=== PATIENT | female | born 1930 | race Caucasian/White ===

== ENCOUNTER 2016-08-04 10:40 | Inpatient (IN) | payer MEDICARE, BC, OTHER ==
--- NOTE | ~2016-08-04 | CR72 ---
[facility] A Service of [facility] & [facility] RADIOLOGY TEXT RESULTS PATIENT: MONICA REDMAN LOCATION: [place] [address] : [birth year] UNIT #: [id number] AGE: [address]: Janina Manzo MD SEX: F ORDER DR: [id number] [facility] [address] [facility] [place], [place] [address] [id number] I MR#: [id number] Acc #: [id number] NAME: MONICA REDMAN : 1930 SEX: F STUDY DATE/TIME: 08/06/2016 8:48 UNIT: [facility] ROOM: 5 STUDY DESCRIPTION: CR Chest Single View Portable Attending Physician: Janina Manzo M.D. Ordering Physician: Janina Manzo M.D. Primary Care Physician: Roman Bahena M.D. MEDICAL IMAGING REPORT This report is preliminary unless electronic signature is present EXAM Portable chest, 08/06 COMPARISON 08/04 HISTORY Fever, mental status change today. FINDINGS An AP view is obtained. Heart size is normal. 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 No acute process is seen. There is atherosclerotic calcification of the aorta. Postsurgical changes are identified in the left shoulder. 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 Dictated by... Mayco Mccord M.D. THIS IS AN ELECTRONICALLY VERIFIED REPORT Mayco Mccord M.D. at 08/09/2016 9:18 AM Juvencio TD: 08/06/2016 10:52 JOB #: [id number] MEDICAL IMAGING REPORT Page 1 of 1 COPY
--- NOTE | ~2016-08-04 | HP ---
Unit #: [id number] #: [id number] Patient: MONICA REDMAN [id number] [place] [id number] [facility]. [place], [place] [address] [id number] MR#: [id number] NAME: MONICA REDMAN ROOM: Age: 86 Sex: F Admission Date: 08/04/2016 : 1930 Attending Physician: Chris Cruz M.D. Primary Care Physician: Roman Bahena M.D. HISTORY AND PHYSICAL CHIEF COMPLAINT Short of air. HISTORY OF PRESENT ILLNESS The patient is an 86-year-old female with a past medical history of congestive heart failure, hypertension, hyperlipidemia, paroxysmal atrial fibrillation, chronic kidney disease and gastroesophageal reflux disease. The patient presented to the emergency department from the longterm for evaluation of the above. History is obtained from chart review and discussion with the emergency room staff, as well as from the patient. She has apparently not been feeling well for two to three weeks. She reports increasing shortness of breath and productive cough. She denies any chills. She is not sure if she has had any fever. She has had chest wall pain in association with cough. She also reports decreased appetite. She denies any vomiting or diarrhea. No urinary symptoms. There is a chest x-ray from 07/31/2016 that showed right lower lobe infiltrate. Per longterm documentation, she was placed on Levaquin to complete 10-day course. The patient's symptoms persisted and worsened. Oxygen saturation was 86% on room air. She was sent to the emergency department for further evaluation. In the emergency department initial oxygen saturation was 90% on 4 liters. Temperature 100.6, pulse 91, blood pressure 159/80. Chest x-ray shows diffuse interstitial change bilaterally. White blood cell count is 16.9. Lactic acid is 1.3. She was given vancomycin, tobramycin and cefepime as well as 1 liter of normal saline. She is being admitted to [facility] for evaluation and further treatment. PAST MEDICAL HISTORY 1. [facility]. The patient states it has been a little more than a year ago. (No records.) 2. Atrial fibrillation, paroxysmal. The patient states that she was on Coumadin years ago, but the desktop operator took her off the Coumadin and placed her only on aspirin. She is not able to recall the name of her desktop operator. 3. Coronary artery disease. 4. Congestive heart failure with unknown ejection fraction. 5. Hypertension. 6. Hyperlipidemia. 7. Chronic kidney disease. 8. Gastroesophageal reflux disease. SOCIAL HISTORY Unit #: [id number] #: [id number] Patient: MONICA REDMAN The patient is at a longterm. She is not ambulatory. She quit smoking. She denies alcohol use. Her code status is a do not resuscitate. FAMILY HISTORY Noncontributory secondary to age. ALLERGIES Penicillin. HOME MEDICATIONS 1. Senna S. 2. Colace. 3. Hydralazine. 4. Isordil. 5. Metoprolol. 6. Zofran. 7. Gabapentin. 8. Desyrel. 9. Pyridoxine. 10. Lipitor. 11. Tramadol. 12. Acetaminophen. 13. Dulcolax. 14. Albuterol. 15. Claritin. 16. Vitamin D3. 17. Omeprazole. 18. Polyethylene glycol. 19. Aspirin. 20. Nitrostat. 21. Proctodone. 22. Albuterol. 23. Guaifenesin. 24. Dextromethorphan. Home medications will need to be reviewed and verified. REVIEW OF SYSTEMS A complete review of systems is negative except as indicated in the history of present illness. PHYSICAL EXAMINATION GENERAL: The patient is a female who is sleeping, but wakes to voice. VITALS: Temperature 100.6, pulse 90, respiratory rate 18, blood pressure 159/80, oxygen saturation 91% on room air. Again, per longterm documentation the patient's oxygen saturation dropped to 86% on room air. HEENT: The head is atraumatic. Mucous membranes are dry. NECK: Supple. Trachea midline. LUNGS: Few scattered rhonchi. Breathing is not labored with conversation. HEART: Irregular. ABDOMEN: Soft and nontender with bowel sounds present in all four quadrants. EXTREMITIES: Nontender with no pedal edema. NEUROLOGIC: The patient is awake and alert. She follows commands. She is moving all extremities. PSYCHIATRIC: Mood and affect are normal. The patient is cooperative. Unit #: [id number] #: [id number] Patient: MONICA REDMAN SKIN: Skin of examined areas is warm and dry. DIAGNOSTIC STUDIES IMAGING: Chest x-ray shows diffuse interstitial change bilaterally. LABORATORY: INR is 1.1, lactic acid 1.3, troponin less than 0.05. CMP notable for glucose of 149, albumin 3.4. Urinalysis shows trace leukocyte esterase, 2+ protein. CBC notable for white blood cell count 16.9. CARDIOVASCULAR: EKG shows normal sinus rhythm with a rate of 93 beats per minute. ASSESSMENT The patient is an 86-year-old female with 1. Acute respiratory failure, hypoxic. Oxygen saturation was 86% on room air. 2. Healthcare associated pneumonia. The patient also failed treatment with Levaquin at the longterm. She received cefepime, tobramycin and vancomycin in the emergency department today. 3. Sepsis with an initial lactic acid of 1.3. The patient received one liter of normal saline in the emergency department. 4. Congestive heart failure with unknown ejection fraction. 5. Hypertension. 6. Hyperlipidemia. 7. Paroxysmal atrial fibrillation. Not on chronic anticoagulation. 8. Chronic kidney disease. The patient's creatinine is 1.1 today and it was 1.2 on 04/01/2009. 9. Gastroesophageal reflux disease. 10. Former smoker. PLAN 1. Admit to intermediate level. 2. Two gram sodium 1800 cc fluid restricted heart-healthy diet if passes bedside swallow. 3. Supplemental oxygen. 4. Blood cultures times two. 5. Sputum culture and sensitivity. 6. Procalcitonin level. 7. Streptococcal and legionella urine antigens. 8. Duo-Nebs q.4 h. 9. Vancomycin IV, tobramycin IV, cefepime IV for healthcare associated pneumonia pending further workup. 10. Sepsis protocol with repeat lactic acid. 11. Check BNP and magnesium. 12. Strict ins and outs. 13. Daily weights. 14. Serial cardiac enzymes. 15. Get records from [place], including echocardiogram if available. 16. P.r.n. Tylenol. 17. SCDs for DVT prophylaxis. 18. Repeat labs in the morning. 19. Additional workup and consultants based on the above. CODE STATUS The patient is a do not resuscitate. Unit #: [id number] #: [id number] Patient: MONICA REDMAN Dictated by Little Castro M.D. ANNY/guille TD: 08/04/2016 13:32 JOB #: [id number] HISTORY AND PHYSICAL Page 1 of 1 X Little Castro MD HISTORY AND PHYSICAL
--- NOTE | ~2016-08-04 | CT71 ---
[facility] A Service of [facility] & [facility] RADIOLOGY TEXT RESULTS PATIENT: MONICA REDMAN LOCATION: [facility] 227-01 : [birth year] UNIT #: [id number] AGE: [address]: Janina Manzo MD SEX: F ORDER DR: [id number] [facility] [address] [facility]. [place], [place] [address] [id number] I MR#: [id number] Acc #: [id number] NAME: MONICA REDMAN : 1930 SEX: F STUDY DATE/TIME: 08/07/2016 12:12 UNIT: C5 ROOM: 575 STUDY DESCRIPTION: CT Head Wo Contrast Attending Physician: Janina Manzo M.D. Ordering Physician: Janina Manzo M.D. Primary Care Physician: Roman Bahena M.D. MEDICAL IMAGING REPORT This report is preliminary unless electronic signature is present EXAM Head CT without HISTORY Altered mental status and confusion. Lack of response today. No history of cancer or trauma. COMMENT Routine noncontrast head CT is reviewed. There is no prior. This CT examination was performed with one or more of the following radiation dose reduction techniques: automatic exposure control, adjustment of mA and/or kV according to patient size, and iterative reconstruction. There is no displaced calvarial fracture. There is a small amount of fluid or inflammatory change in the mastoid air cells bilaterally. There is also an air-fluid level in the left sphenoid sinus which is nearly completely opacified consistent with a component of acute sinusitis. There is partial opacification of the ethmoid air cells left greater than right. Probably a small air-fluid level at the inferior left frontal sinus. There is generalized atrophy and fairly extensive white matter low-attenuation which is nonspecific but probably due to small vessel disease in the patient's age group. Chronic-appearing lacunar insults in the basal ganglia noted. There is a chronic lacune in the left superior cerebellar hemisphere. No extraaxial fluid collection or acute intracranial hemorrhage is suspected. The basilar cisterns are patent. The patient has had cataract surgery bilaterally. There is no intracranial mass effect. There is no obvious acute cortical infarct but if this is the clinical concern and the patient is a candidate she is best assessed further with an MRI. No intracranial mass effect. [facility] A Service of [facility] & [facility] RADIOLOGY TEXT RESULTS PATIENT: MONICA REDMAN LOCATION: [facility] 227-01 : [birth year] UNIT #: [id number] AGE: [address]: Janina Manzo MD SEX: F ORDER DR: IMPRESSION 1. Fairly extensive probable sequelae of small vessel disease. Atrophy in general. No acute intracranial abnormality is appreciated but if there is clinical concern for acute CVA, and the patient is a candidate, followup MRI would be most helpful. 2. There is evidence of acute sinusitis including a large air-fluid level in the left sphenoid sinus and probably a small air-fluid level in the left frontal sinus. Also partial opacification of mastoid air cells with small air-fluid levels. Please correlate further clinically. Dictated by... Fariha Carlisle M.D. THIS IS AN ELECTRONICALLY VERIFIED REPORT Fariha Carlisle M.D. at 08/10/2016 1:59 PM RONIT/lucian TD: 08/07/2016 14:05 JOB #: [id number] MEDICAL IMAGING REPORT Page 1 of 1 COPY
--- NOTE | ~2016-08-04 | CT16 ---
[facility] A Service [facility] RADIOLOGY TEXT RESULTS PATIENT: MONICA REDMAN LOCATION: [facility] 575-01 : [birth year] UNIT #: [id number] AGE: [address]: Janina Manzo MD SEX: F ORDER DR: [id number] [facility] [address] [facility] [facility]. [place], [place] [address] [id number] I MR#: [id number] Acc #: [id number] NAME: MONICA REDMAN : 1930 SEX: F STUDY DATE/TIME: 08/06/2016 18:15 UNIT: [facility] ROOM: [facility] STUDY DESCRIPTION: CT Angio Chest for PE Attending Physician: Janina Manzo M.D. Ordering Physician: Janina Manzo M.D. Primary Care Physician: Roman Bahena M.D. MEDICAL IMAGING REPORT This report is preliminary unless electronic signature is present EXAM CT angiogram chest with IV contrast HISTORY Shortness of air. Cough for 1 week. TECHNIQUE IV contrast enhanced CT angiogram of the chest was performed with 3-D reconstructions. Exam sensitivity is limited by patient motion. This CT exam was performed with one or more of the following radiation dose reduction techniques: automatic exposure control, adjustment of mA and/or kV according to patient size, and iterative reconstruction. FINDINGS There is mild atelectasis in the posterior lower lobes bilaterally. Minimal subsegmental atelectasis in the inferior left upper lobe. No pulmonary embolus is identified, although sensitivity is limited. Partly calcified mitral annulus. Incidental 7 mm non-obstructing stone in the upper pole of the left kidney. Bilateral incidental renal cysts. Normal caliber thoracic aorta. IMPRESSION 1. No pulmonary embolus is identified but sensitivity is limited by motion artifact. 2. Mild atelectasis in the posterior inferior lower lobe and minimal atelectasis in the inferior left upper lobe. 3. No adenopathy. 4. Incidental 7 mm non-obstructing stone in the upper pole left kidney and several incidental bilateral renal cysts. [facility] A Service of [facility] RADIOLOGY TEXT RESULTS PATIENT: MONICA REDMAN LOCATION: [place] [address] : [birth year] UNIT #: [id number] AGE: [address]: Janina Manzo MD SEX: F ORDER DR: Dictated by... Donta Sharp M.D. THIS IS AN ELECTRONICALLY VERIFIED REPORT Donta Sharp M.D. at 08/06/2016 10:54 PM DFL/pcl TD: 08/06/2016 21:51 JOB #: [id number] MEDICAL IMAGING REPORT Page 1 of 1 COPY
--- NOTE | ~2016-08-04 | XA166 ---
[facility] A Service of [facility] RADIOLOGY TEXT RESULTS PATIENT: MONICA REDMAN LOCATION: [facility] 227-01 : [birth year] UNIT #: [id number] AGE: [address]: Janina Manzo MD SEX: F ORDER DR: [id number] [facility] [address] [place] [facility]. [place], [place] [address] [id number] I MR#: [id number] Acc #: [id number] NAME: MONICA REDMAN : 1930 SEX: F STUDY DATE/TIME: 08/07/2016 14:22 UNIT: [facility] ROOM: 575 STUDY DESCRIPTION: XA PICC Line Placement WO Port Attending Physician: Janina Manzo M.D. Ordering Physician: Janina Manzo M.D. Primary Care Physician: Roman Bahena M.D. MEDICAL IMAGING REPORT This report is preliminary unless electronic signature is present EXAM PICC line placement under ultrasound fluoroscopy HISTORY Long-term antibiotic therapy. PRE-PROCEDURE The procedure was explained to the patient and/or patient construction representative including risks, benefits, potential complications and potential for alternative forms of treatment. Informed consent was obtained, and prior to initiating the procedure a formal timeout procedure was performed. PROCEDURE Using full standard sterile barrier technique, including caps, gowns, gloves, masks, as well as sterile skin preparation and standard sterile draping, the left arm was prepped and draped in the usual fashion, and real-time sterile ultrasound guidance was used to localize an arm vein and to confirm vessel patency. A hard copy ultrasound image was recorded. After local anesthesia with 1% Xylocaine, the left brachial vein was punctured using real-time sterile ultrasound guidance, and an 0.018 guidewire was advanced into the superior vena cava, using fluoroscopic guidance. A 5-Namibian dual-lumen PICC was then measured to 42 cm and deployed with the tip positioned in the superior vena cava. The position of the line was documented with a radiographic image. The line was secured in place with an adhesive dressing and an antibiotic patch was applied. Total fluoro time was 1 minute minutes. A single fluoroscopic spot image was obtained. IMPRESSION 1. Successful placement of a 5-Namibian dual-lumen Power PICC via the left arm under ultrasound and fluoroscopic guidance. The tip of the PICC STS. [facility] A Service of [facility] RADIOLOGY TEXT RESULTS PATIENT: MONICA REDMAN LOCATION: [place] [address] : [birth year] UNIT #: [id number] AGE: [address]: Janina Manzo MD SEX: F ORDER DR: is in good position in the superior vena cava. 2. A single fluoroscopic spot image was obtained. Dictated by... Mayco Mccord M.D. THIS IS AN ELECTRONICALLY VERIFIED REPORT Mayco Mccord M.D. at 08/09/2016 9:17 AM Kobe TD: 08/08/2016 15:08 JOB #: [id number] MEDICAL IMAGING REPORT Page 1 of 1 COPY
--- NOTE | ~2016-08-04 | CR72 ---
[facility] A Service of [place] & [facility] RADIOLOGY TEXT RESULTS PATIENT: MONICA REDMAN LOCATION: [facility] 575-01 : [birth year] UNIT #: [id number] AGE: [address]: Janina Manzo MD SEX: F ORDER DR: [id number] [facility] [address]. [place], [place] [address] [id number] I MR#: [id number] Acc #: [id number] NAME: MONICA REDMAN. : 1930 SEX: F STUDY DATE/TIME: 08/04/2016 UNIT: [facility] ROOM: [facility] STUDY DESCRIPTION: CR Chest Single View Portable Attending Physician: Little Castro M.D. Ordering Physician: Chris Cruz M.D. Primary Care Physician: Roman Bahena M.D. MEDICAL IMAGING REPORT This report is preliminary unless electronic signature is present EXAM Chest portable, 08/04/2016 at 11:10 hours HISTORY An 86-year-old woman with shortness of air today. COMPARISON 09/21/2012 FINDINGS Portable upright chest demonstrates the patient to be rotated to the left. The heart size is at the upper limits of normal with tortuous atherosclerotic aorta unchanged. There is new diffuse interstitial change throughout both lungs likely interstitial edema. No definite effusion. IMPRESSION New diffuse interstitial changes in both lungs likely interstitial edema. This is new from 09/21/2012. There is no effusion. No pneumothorax. Dictated by... Angie Daly M.D. THIS IS AN ELECTRONICALLY VERIFIED REPORT Angie Daly M.D. at 08/05/2016 9:31 AM SONG/yael TD: 08/04/2016 16:15 JOB #: [id number] MEDICAL IMAGING REPORT Page 1 of 1 COPY
--- NOTE | ~2016-08-04 | EKG ---
PATIENT: MONICA REDMAN UNIT #: [id number] Ventricular Rate: 93 BPM Atrial Rate: 93 BPM P-R Interval: 154 ms QRS Duration: 140 ms Q-T Interval: 394 ms QTC Calculation(Bezet): 489 ms P [place]: 32 degrees Calculated R [place]: 47 degrees Calculated T [place]: 3 degrees Diagnosis Line: Normal sinus rhythm Diagnosis Line: Right bundle branch block Diagnosis Line: Abnormal ECG Diagnosis Line: No previous ECGs available Diagnosis Line: Confirmed by JEANNA DUGAN MD ([id number]) on Diagnosis Line: 08/04/2016 10:16:56 PM INTERPRETING MD: JACOB
--- NOTE | ~2016-08-04 | DS ---
Unit #: [id number] #: [id number] Patient: MONICA VIGIL [id number] [address] [address] [id number] I MR#: [id number] NAME: MONICA VIGIL. ROOM: 227 Age: 86 Sex: F Admission Date: 08/04/2016 : 1930 Discharge Date: 08/10/2016 Attending Physician: Janina Manzo M.D. Primary Care Physician: Roman Bahena M.D. DISCHARGE SUMMARY PRINCIPAL DIAGNOSES 1. Sepsis, secondary to right lower lobe pneumonia, presumed aspiration in origin. 2. Acute hypoxic respiratory failure. 3. Acute reactive airway disease. 4. Acute delirium. 5. Chronic kidney disease stage 3 with baseline creatinine of approximately 1.1. 6. History of paroxysmal atrial fibrillation, currently maintained on normal sinus rhythm. 7. Probable chronic diastolic congestive heart failure without exacerbation. 8. Hypertension. 9. Moderate protein malnutrition. 10. Chronic immobility, secondary to severe spinal stenosis. 11. 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 NURSE SUBSTANCE ABUSE None. PROCEDURES 1. Chest x-ray on August 04, 2016 with interstitial changes in both lungs. 2. Chest x-ray on August 06, 2016 with chronic fibrosis of the lungs. 3. CT angiogram of the chest on August 06, 2016, which was negative for pulmonary embolism. Atelectasis in the posterior inferior lower lobe. Noted incidental 7 mm nonobstructing stone in the upper pole of the left kidney. 4. CT of the head without contrast on August 07, 2016 with extensive sequela of small vessel disease and atrophy. Acute sinusitis including large air fluid level in the left sphenoid sinus and the left frontal sinus. Partial opacification of mastoid air cells with small fluid levels. CLINICAL HISTORY AND HOSPITAL COURSE Ms. Vigil is a nice 86-year-old female who presents to the emergency department from the nursing facility with complaints of shortness of breath. Please refer to H and P for further details. Chest x-ray at the nursing facility revealed pneumonia on July 31. She was back improving on Levaquin. She was found to be hypoxic at the nursing facility and again was admitted. Patient was placed on broad-spectrum antibiotics for healthcare-associated pneumonia. She did have associated leukocytosis upon presentation. Chest x-ray here upon presentation revealed questionable edema versus fibrosis Unit #: [id number] #: [id number] Patient: MONICA VIGIL with some right lower lobe infiltrate. There are concerns that perhaps this might represent aspiration, particularly given the fact that her procalcitonin was normal. She was continued on antibiotic therapy and plans were for speech to see the patient. However, the second morning following admission, the patient became increasingly more confused. Extensive workup was initiated including ABGs, repeat blood work, followup chest x-ray, CT angiogram of the chest, and CT scan of the head. None of these revealing probable cause. I did discuss possible lumbar puncture with the patient's daughter but she did not feel she wanted this done at that time. I tend to agree with that given patient's leukocytosis had resolved and she remained afebrile. Patient clinically appeared to have simply just "given up." Ultimately, patient's daughter opted to have comfort measures which seemed appropriate. At this time, still awaiting hospice evaluation but I anticipate patient will either be discharged to the inpatient hospice unit or return to her nursing facility with hospice measures. DISCHARGE CONDITION Stable. DISCHARGE STATUS Discharge to the care of hospice. DISCHARGE MEDICATIONS 1. Robinul 0.4 mg IV q.4 hours p.r.n. for respiratory secretions. 2. Ativan 1 mg IV q.2 hours p.r.n. for anxiety. 3. Morphine 2 to 4 mg IV q.2 hours p.r.n. for pain or shortness of breath. DISCHARGE INSTRUCTIONS 1. The patient was instructed to follow a regular as she so wishes. 2. She can increase her activity as tolerated but again she is immobile at baseline. 3. Followup per hospice. Dictated by... Janina Manzo M.D. BEAN/jesus manuel TD: 08/10/2016 12:28 JOB #: [id number] DISCHARGE SUMMARY Page 1 of 1 X Janina Manzo MD DISCHARGE SUMMARY
[2016-08-04] MEDS ORDERED: DOCUSATE SODIU100 MG PO (10:47)
[2016-08-04] MEDS ORDERED: SENEXON-S TABL1 EACH PO (10:47)
[2016-08-04] MEDS ORDERED: HYDRALAZINE HCL25 MG PO (10:48)
[2016-08-04] MEDS ORDERED: ISORDIL10 MG PO (10:48)
[2016-08-04] MEDS ORDERED: METOPROLOL SUCC25 MG PO (10:49)
[2016-08-04] MEDS ORDERED: ZOFRAN ODT4 M1 PO (10:49)
[2016-08-04] MEDS ORDERED: GABAPENTIN400 M2 PO (10:50)
[2016-08-04] MEDS ORDERED: DESYREL50 MG PO (10:51)
[2016-08-04] MEDS ORDERED: TRAMADOL HCL50 M1 PO (10:52)
[2016-08-04] MEDS ORDERED: LIPITOR40 MG PO (10:52)
[2016-08-04] MEDS ORDERED: PYRIDOXINE HCL50 M1 PO (10:52)
[2016-08-04] MEDS ORDERED: PAIN RELIEF325 M1 PO (10:53)
[2016-08-04] MEDS ORDERED: DULCOLAX10 MG PR (10:53)
[2016-08-04] MEDS ORDERED: ALBUTEROL2.5 MG/3 M (10:54)
[2016-08-04] MEDS ORDERED: VITAMIN D32000 UNI1 PO (10:54)
[2016-08-04] MEDS ORDERED: CLARITIN10 M3 PO (10:54)
[2016-08-04] MEDS ORDERED: OMEPRAZOLE20 M2 PO (10:55)
[2016-08-04] MEDS ORDERED: ASPIRIN81 MG PO (10:56)
[2016-08-04] MEDS ORDERED: GAVILAX17 GM PO (10:56)
[2016-08-04] MEDS ORDERED: NITROSTAT0.4 MG SL (10:56)
[2016-08-04] MEDS ORDERED: ALBUTEROL 0.5ML INH (10:57)
[2016-08-04] MEDS ORDERED: PROCTOZONE-HC30 G2 TOP (10:57)
[2016-08-04] MEDS ORDERED: ROBAFEN DM COU118 ML PO (10:58)
[2016-08-04 11:22] LABS: BASOPHIL% 0.2 % (0-2.5); EOSINOPHIL# 0.2 X10e3 (0-0.7); EOSINOPHIL% 1.3 % (0.0-7.0); HEMATOCRIT 42.2 % (35.0-45.0); HEMOGLOBIN 13.8 gm/dL (12.0-16.0); LYMPHOCYTE# 1.3 X10e3 (1.0-3.5); LYMPHOCYTE% 7.5 % (17.0-45.0); MEAN CELL VOLUME 86.6 FL (83-96); MEAN CORPUSCULAR HEMOGLOBIN 28.3 PG (28-34); MEAN CORPUSCULAR HGB CONC 32.7 g/dL (30-36); MEAN PLATELET VOLUME 8.5 FL (6.5-11.5); MONOCYTE# 0.7 X10e3 (0-1.0); MONOCYTE% 4.4 % (3.0-12.0); NEUTROPHIL# 14.6 X10e3 (1.5-7.1); NEUTROPHIL% 86.6 % (40-75); PLATELET COUNT 148 X10e3 (140-420); RED BLOOD COUNT 4.87 X10e (3.90-5.30); RED CELL DISTRIBUTION WIDTH 15.1 % (11.0-15.5); WHITE BLOOD COUNT 16.9 X10e3 (4.0-10.5)
[2016-08-04 11:26] LABS: DIFF IND YES
[2016-08-04 11:34] LABS: INR 1.1; PARTIAL THROMBOPLASTIN TIME 29.7 SECONDS (23.5-31.3); PROTHROMBIN TIME (PATIENT) 11.5 SECONDS (9.6-11.5)
[2016-08-04 11:45] LABS: ALBUMIN SERUM 3.4 g/dL (3.5-5.0); BILIRUBIN, DIRECT 0.1 mg/dL (0.0-0.2); BILIRUBIN,TOTAL 1.1 mg/dL (0.2-2.0); BUN/CREATININE RATIO 19.09; CALCIUM SERUM 8.8 mg/dL (8.4-10.2); CREATININE SERUM 1.1 mg/dL (0.6-1.4); GLOM FILT RATE Estimated 44.8 mL/min (>60); POTASSIUM 4.1 mmol/L (3.5-5.1); PROTEIN TOTAL SERUM 7.3 g/dL (6.0-8.3)
[2016-08-04 11:46] LABS: POC - CKMB <1.0 ng/mL (0.0-7.9); POC - TROPONIN <0.05 ng/mL (<=0.05)
[2016-08-04 11:56] LABS: URINE APPEARANCE CLEAR; URINE BILIRUBIN NEG (NEG); URINE BLOOD TRACE (NEG); URINE COLOR YELLOW; URINE GLUCOSE NEG (NEG); URINE KETONE NEG (NEG); URINE LEUKOCYTE ESTERASE TRACE (NEG); URINE NITRATE NEG (NEG); URINE PROTEIN 2+ (NEG); URINE SPECIFIC GRAVITY 1.021 (1.003-1.035)
[2016-08-04 11:59] LABS: U HYALINE CASTS AUWI 0-2 /[LPF]; URINE BACTERIA AUWI NEG (NEGATIVE); URINE SQUAMOUS EPITHELIAL CELL OCC /[HPF]; UWBCS1 AUWI 0-2 (0-5)
[2016-08-04 12:12] LABS: CULTURE INDICATED? NO; URINE SOURCE CATH
[2016-08-04 12:17] LABS: URBCS1 AUWI 0-2 /[HPF] (0-2)
[2016-08-04 12:27] LABS: ANISOCYTOSIS SL; PLATELET ESTIMATE NORMAL (NORMAL); RBC NORMAL YES
[2016-08-05 00:12] LABS: MAGNESIUM 1.8 mg/dL (1.6-3.0)
[2016-08-05 00:34] LABS: %MB 3.3 % (0.0-4.0); MB 2.2 ng/ml
[2016-08-05 05:20] LABS: HEMATOCRIT 35.5 % (35.0-45.0); MEAN CELL VOLUME 86.7 FL (83-96); MEAN CORPUSCULAR HEMOGLOBIN 28.4 PG (28-34); MEAN CORPUSCULAR HGB CONC 32.8 g/dL (30-36); MEAN PLATELET VOLUME 8.4 FL (6.5-11.5); RED BLOOD COUNT 4.09 X10e (3.90-5.30); RED CELL DISTRIBUTION WIDTH 15.4 % (11.0-15.5)
[2016-08-05 05:33] LABS: HEMOGLOBIN 11.6 gm/dL (12.0-16.0)
[2016-08-05 05:37] LABS: ALBUMIN SERUM 2.6 g/dL (3.5-5.0); BILIRUBIN,TOTAL 1.4 mg/dL (0.2-2.0); BUN/CREATININE RATIO 20.9; CALCIUM SERUM 8.2 mg/dL (8.4-10.2); CREATININE SERUM 1.1 mg/dL (0.6-1.4); GLOM FILT RATE Estimated 44.8 mL/min (>60); MAGNESIUM 1.8 mg/dL (1.6-3.0); PROTEIN TOTAL SERUM 5.8 g/dL (6.0-8.3)
[2016-08-06 07:08] LABS: INFLUENZA A NEG (NEG); INFLUENZA B NEG (NEG)
[2016-08-06 08:11] LABS: ARTERIAL BLD GAS O2 SATURATION 97.7 % (90.0-100.0); ARTERIAL BLOOD GAS ALLEN TEST NORMAL; ARTERIAL BLOOD GAS ART SITE LEFT RADIAL; ARTERIAL BLOOD GAS CARBOXY HB 0.7 %sat (0.0-9.0); ARTERIAL BLOOD GAS DELIVERY NASAL CANNULA; ARTERIAL BLOOD GAS HCO3 20.9 mmol/L; ARTERIAL BLOOD GAS MET HB 0.6 %sat (0.0-2.0); ARTERIAL BLOOD GAS PCO2 30.4 mmHg (35.0-45.0); ARTERIAL BLOOD GAS PO2 84.3 mmHg (80.0-100); ARTERIAL BLOOD GAS pH 7.446 (7.350-7.450); ARTERIAL DRAW? YES
[2016-08-06 08:16] LABS: HEMATOCRIT 38.3 % (35.0-45.0); HEMOGLOBIN 12.5 gm/dL (12.0-16.0); MEAN CELL VOLUME 87.5 FL (83-96); MEAN CORPUSCULAR HEMOGLOBIN 28.5 PG (28-34); MEAN CORPUSCULAR HGB CONC 32.6 g/dL (30-36); RED BLOOD COUNT 4.38 X10e (3.90-5.30); RED CELL DISTRIBUTION WIDTH 14.8 % (11.0-15.5); WHITE BLOOD COUNT 7.3 X10e3 (4.0-10.5)
[2016-08-06 09:15] LABS: BUN/CREATININE RATIO 22.72; CALCIUM SERUM 8.7 mg/dL (8.4-10.2); CREATININE SERUM 1.1 mg/dL (0.6-1.4); GLOM FILT RATE Estimated 44.8 mL/min (>60); POTASSIUM 4.2 mmol/L (3.5-5.1)
[2016-08-07 05:31] LABS: HEMATOCRIT 35.8 % (35.0-45.0); HEMOGLOBIN 11.6 gm/dL (12.0-16.0); MEAN CORPUSCULAR HEMOGLOBIN 28.6 PG (28-34); MEAN CORPUSCULAR HGB CONC 32.5 g/dL (30-36); MEAN PLATELET VOLUME 8.4 FL (6.5-11.5); RED BLOOD COUNT 4.07 X10e (3.90-5.30); RED CELL DISTRIBUTION WIDTH 15.3 % (11.0-15.5); WHITE BLOOD COUNT 9.7 X10e3 (4.0-10.5)
[2016-08-07 06:03] LABS: BUN/CREATININE RATIO 25.45; CALCIUM SERUM 8.8 mg/dL (8.4-10.2); CREATININE SERUM 1.1 mg/dL (0.6-1.4); GLOM FILT RATE Estimated 44.8 mL/min (>60); POTASSIUM 3.8 mmol/L (3.5-5.1)
[2016-08-07 11:06] LABS: ARTERIAL BLD GAS O2 SATURATION 97.7 % (90.0-100.0); ARTERIAL BLOOD GAS HCO3 21.2 mmol/L; ARTERIAL BLOOD GAS PCO2 35.1 mmHg (35.0-45.0)
[2016-08-07 11:07] LABS: ARTERIAL BLOOD GAS ALLEN TEST NORMAL; ARTERIAL BLOOD GAS ART SITE LEFT RADIAL; ARTERIAL BLOOD GAS CARBOXY HB 0.7 %sat (0.0-9.0); ARTERIAL BLOOD GAS DELIVERY NASAL CANNULA; ARTERIAL DRAW? YES
[2016-08-07 14:21] LABS: URINE SOURCE CATH
[2016-08-07 14:40] LABS: URINE APPEARANCE CLEAR; URINE BILIRUBIN NEG (NEG); URINE BLOOD 1+ (NEG); URINE COLOR YELLOW; URINE GLUCOSE NEG (NEG); URINE KETONE NEG (NEG); URINE LEUKOCYTE ESTERASE NEG (NEG); URINE NITRATE NEG (NEG); URINE PH 6.5 (5-8); URINE PROTEIN 1+ (NEG); URINE UROBILINOGEN 0.2 MG/DL (NEG)
[2016-08-07 14:42] LABS: URBCS1 AUWI 0-2 /[HPF] (0-2); URINE BACTERIA AUWI NEG (NEGATIVE); URINE SQUAMOUS EPITHELIAL CELL NONE SEEN /[HPF]; UWBCS1 AUWI 0-2 (0-5)
[2016-08-08 08:12] LABS: LEGIONELLA AG URINE NEG (NEG)
[2016-08-08 10:00] LABS: HEMATOCRIT 34.5 % (35.0-45.0); HEMOGLOBIN 11.5 gm/dL (12.0-16.0); MEAN CELL VOLUME 86.1 FL (83-96); MEAN CORPUSCULAR HEMOGLOBIN 28.7 PG (28-34); MEAN CORPUSCULAR HGB CONC 33.3 g/dL (30-36); MEAN PLATELET VOLUME 7.9 FL (6.5-11.5); RED CELL DISTRIBUTION WIDTH 15.1 % (11.0-15.5); WHITE BLOOD COUNT 8.2 X10e3 (4.0-10.5)
[2016-08-08 10:30] LABS: BUN/CREATININE RATIO 22.22; CALCIUM SERUM 8.4 mg/dL (8.4-10.2); CREATININE SERUM 0.9 mg/dL (0.6-1.4); GLOM FILT RATE Estimated 57.1 mL/min (>60); MAGNESIUM 1.8 mg/dL (1.6-3.0); PHOSPHOROUS 2.2 mg/dL (2.5-4.6); POTASSIUM 3.2 mmol/L (3.5-5.1)
== END 2016-08-11 12:00 | DRG 871 ==
LOC: CED 10:40 → C2A 13:00 → CEDOF 13:00 → C5C 13:00 → CEDOF 13:21 → CED 13:21 → C5C 15:48 → CEDOF 15:48 → C5C 08-05 07:34 → C2A 08-08 18:02
PROVIDERS: Emergency Medicine; Family Medicine; Internal Medicine
PROC: B32TYZZ Computerized Tomography (CT Scan) of Left Pulmonary Artery using Other Contrast (ICD-10-PCS; 2016-08-06)
PROC: B32SYZZ Computerized Tomography (CT Scan) of Right Pulmonary Artery using Other Contrast (ICD-10-PCS; 2016-08-06)
PROC: 05H333Z Insertion of Infusion Device into Right Innominate Vein, Percutaneous Approach (ICD-10-PCS; 2016-08-06)
PROC: B54MZZA Ultrasonography of Right Upper Extremity Veins, Guidance (ICD-10-PCS; 2016-08-06)
PROC: 02HV33Z Insertion of Infusion Device into Superior Vena Cava, Percutaneous Approach (ICD-10-PCS; principal; 2016-08-07)
DX: A41.9 Sepsis, unspecified organism (principal); J96.01 Acute respiratory failure with hypoxia; J69.0 Pneumonitis due to inhalation of food and vomit; I13.0 Hypertensive heart and chronic kidney disease with heart failure and stage 1 through stage 4 chronic kidney disease, or unspecified chronic kidney disease; N18.3 Chronic kidney disease, stage 3 (moderate); I50.32 Chronic diastolic (congestive) heart failure; I48.0 Paroxysmal atrial fibrillation; E44.0 Moderate protein-calorie malnutrition; F01.50 Vascular dementia, unspecified severity, without behavioral disturbance, psychotic disturbance, mood disturbance, and anxiety; G89.29 Other chronic pain; M48.00 Spinal stenosis, site unspecified; Z51.5 Encounter for palliative care; K21.9 Gastro-esophageal reflux disease without esophagitis; Z87.891 Personal history of nicotine dependence; Z88.0 Allergy status to penicillin; Z74.01 Bed confinement status
CPT/HCPCS: 36415; 36600; 51701; 70450; 71010; 71275; 76937; 77001; 80048; 80053; 80076; 80200; 81003; 82140; 82308; 82550; 82553; 82803; 82947; 83605; 83735; 83880; 84100; 84443; 84484; 85025; 85027; 85610; 85730; 87040; 87086; 87449; 87804; 87899; 93005; 94640; 94760; 96360; 99285; C1751; J0692; J2060; J2270; J2405; J2920; J3260; J3370; Q9967